=== PATIENT | female | born 1965 | race Caucasian/White ===

== ENCOUNTER 2018-05-21 17:25 | Inpatient (IN) | payer BC, OTHER ==
[~2018-05-21] VITALS: Ht 175.3 cm; Wt 61.2 kg
--- NOTE | 2018-05-21 19:50 | NUR ---
Pre-Assessment Pt is a 53 year old female seen in intake, A&Ox4. Pt appears anxious, skin flushed and in noted with tearful eyes. Upon assessment pt states she is here for alcohol withdrawal. As intake assessment continues, pt appears to be emotional as this is her first time in detox treatment - reassurance provided and education continued. Vital signs taken, rules of the unit explained such as vital signs Q4H, wasting of controlled substances, kitchen access, and smoking patio privileges. Pt verbalized understanding. Will continue with admission process upon arrival on unit.
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
[2018-05-21 20:10] VITALS: BP 156/94
[2018-05-21] MEDS ORDERED: DICYCLOMINE HCL 20 MG TABLET PO PRN (20:15)
[2018-05-21] MEDS ORDERED: ONDANSETRON 4 MG/2 ML VIAL IM PRN (20:15)
[2018-05-21] MEDS ORDERED: LORAZEPAM 1 MG TABLET PO PRN (20:15)
[2018-05-21] MEDS ORDERED: IBUPROFEN 600 MG TABLET PO PRN (20:15)
[2018-05-21] MEDS ORDERED: THIAMINE HCL 200 MG/2 ML VIAL IM ONE (20:15)
[2018-05-21] MEDS ORDERED: LORAZEPAM 2 MG/1 ML VIAL IM PRN (20:15)
[2018-05-21] MEDS ORDERED: MIRALAX 17 GM POWD.PACK PO PRN (20:15)
[2018-05-21] MEDS ORDERED: MAGNESIUM HYDROXIDE 30 ML LIQUID UDC PO PRN (20:15)
[2018-05-21] MEDS ORDERED: LOPERAMIDE HCL 2 MG CAPSULE PO PRN ×2 (20:15)
[2018-05-21] MEDS ORDERED: ONDANSETRON ODT 4 MG TAB.RAPDIS SL PRN (20:15)
[2018-05-21] MEDS ORDERED: MAG HYDROX/AL HYDROX/SIMETH 30 ML LIQUID UDC PO PRN (20:15)
[2018-05-21] MEDS ORDERED: ACETAMINOPHEN 325 MG TABLET PO PRN (20:15)
[2018-05-21 20:40] LABS: *URINE HCG, QUAL NEGATIVE (NEGATIVE)
[2018-05-21 20:40] LABS: BASOPHILS # (AUTO) 0.1 K/uL (0.0-8.0); BASOPHILS % (AUTO) 2.9 % (0.0-2.0); EOSINOPHILS # (AUTO) 0.1 K/uL (0.0-0.7); EOSINOPHILS % (AUTO) 1.6 % (0.0-7.0); HEMATOCRIT 44.2 % (31.2-41.9); LYMPHOCYTES # (AUTO) 2.3 K/uL (20.0-40.0); LYMPHOCYTES % (AUTO) 45.6 % (20.5-51.5); MEAN CORPUSCULAR HEMOGLOBIN 34.6 uug (24.7-32.8); MEAN CORPUSCULAR HGB CONC 34 g/dL (32.3-35.6); MEAN CORPUSCULAR VOLUME 101.8 fL (75.5-95.3); MONOCYTES # (AUTO) 0.4 K/uL (2.0-10.0); MONOCYTES % (AUTO) 7.4 % (0.0-11.0); NEUTROPHILS # (AUTO) 2.1 K/uL (1.8-8.9); NEUTROPHILS % (AUTO) 42.5 % (38.5-71.5); PLATELET COUNT (AUTO) 285 K/uL (179-408); RED BLOOD CELL COUNT(AUTO) 4.34 MIL/uL (3.63-4.92)
[2018-05-21 20:52] LABS: BILIRUBIN,TOTAL 0.4 mg/dL (0.2-1.0); CREATININE 0.7 mg/dL (0.6-1.3); MAGNESIUM 1.8 mg/dL (1.8-2.4); POTASSIUM 3.7 mmol/L (3.5-5.1); TOTAL PROTEIN, SERUM 8.4 g/dL (6.4-8.2)
[2018-05-21 21:13] LABS: THYROID STIMULATING HORMONE 0.829 mIU/mL (0.358-3.740)
[2018-05-21 21:14] LABS: *AMPHETAMINE, URINE NEGATIVE (NEGATIVE); *BARBITURATE, URINE NEGATIVE (NEGATIVE); *CANNABINOID, URINE NEGATIVE (NEGATIVE); *COCCAINE, URINE NEGATIVE (NEGATIVE); *OPIATE, URINE NEGATIVE (NEGATIVE); *PHENCYCLIDINE SCREEN,URINE NEGATIVE (NEGATIVE)
[2018-05-21] MEDS: LORAZEPAM 1 MG TABLET PO PRN (21:17)
--- NOTE | 2018-05-21 21:17 | NUR ---
PRN Ativan 2mg Pt noted with CIWA: 16. PRN Ativan 2mg given and tolerated well. Will reassess within 1 HR. Will continue to monitor. Addendum: 05/22/18 at 0426 by CASSIDY ROGEL LVN withdrawal symptoms include mild nausea, fine tremors, sweat on forehead, moderate anxiety and agitation.
--- NOTE | 2018-05-21 22:05 | NUR ---
PRN Ativan 2mg Reassessment Medication effective. Pt expresses reduction of anxiety and noted with CIWA: 11. No s/s of ASE noted at this time. Respirations even and unlabored. Will continue to monitor. Addendum: 05/22/18 at 0445 by CASSIDY CROFTN Withdrawal symptoms include fine tremors, sweat on brow, anxiety, and agitation.
[2018-05-22 00:28] VITALS: BP 142/89
--- NOTE | 2018-05-22 00:28 | NUR ---
CIWA Assessment CIWA: 10. Pt noted with fine tremors, sweat on brow, anxiety, and agitation. Respirations even and unlabored. Will continue to monitor.
[2018-05-22] MEDS ORDERED: [UNRECOGNIZED DRUG - CODE] OP (03:43)
[2018-05-22] MEDS ORDERED: ALBU8HFA4 (03:43)
[2018-05-22 04:31] VITALS: BP 145/88
--- NOTE | 2018-05-22 04:31 | NUR ---
CIWA Assessment CIWA: 17. Pt noted with nausea, fine tremors, sweat on forehead, anxiety, and agitation. Respirations even and unlabored. Will continue to monitor.
--- NOTE | 2018-05-22 04:41 | NUR ---
PRN Zofran Pt c/o nausea and requested for PRN Zofran. Medication given and tolerated well. Will reassess within 30 minutes. Will continue to monitor.
[2018-05-22] MEDS: LORAZEPAM 1 MG TABLET PO PRN (04:54)
--- NOTE | 2018-05-22 04:54 | NUR ---
PRN Zofran Reassessment Medication effective. Pt expresses reduction of nausea. No s/s of ASE noted at this time. Respirations even and unlabored. Will continue to monitor.
--- NOTE | 2018-05-22 04:55 | NUR ---
PRN Ativan 2mg Pt noted with CIWA: 17. PRN Ativan 2mg given and tolerated well. Will reassess within 1 HR. Will continue to monitor.
--- NOTE | 2018-05-22 05:50 | NUR ---
PRN Ativan 2mg Reassessment Medication effective. Pt expresses reduction of anxiety. CIWA: 12. Pt noted with mild nausea, fine tremors, sweat on brow, anxiety, and agitation. No s/s of ASE noted at this time. Respirations even and unlabored. Will continue to monitor.
--- NOTE | 2018-05-22 07:00 | NUR ---
End of shift note Newly admitted patient. Pt was continuously noted with anxiety, agitation, restlessness, nausea, and sweat. Pt remained in room for entire shift after admission. Pt remained cooperative and compliant with all aspects of treatment. Pt was given PRN Ativan 2mg @2117 and @0455 and PRN Zofran @0441. Pt will start 3 day Ativan taper today. Pt slept for a total of 8 HRS. Last CIWA: 12 @0550. Respirations even and unlabored. Will endorse to day shift nurse.
--- NOTE | 2018-05-22 07:49 | NUR ---
Start of shift Pt is 53 y/o female admitted for medically supervised withdrawal of ETOH. Last CIWA 12 at 0600. Pt A&O x4. Pt reports anxiety, agitation, nausea and poor appetite. Symptoms presented are sweat on brow, chills, fine tremors, restlessness and fatigue. Pt presents with flat affect and depressed mood. Pt is currently on 3 day Ativan taper to manage withdrawal symptoms. Pt encouraged to participate in group activities, socialize with others and identify positive coping skills to maintain sobriety. Pt slept 8 hours. Safety measures in place; Bed in lowest position. Side rails up x2. Call light functioning and within reach. All needs attended and met. Will continue to monitor for withdrawal symptoms.
[2018-05-22 08:02] VITALS: BP 125/86
--- NOTE | 2018-05-22 08:15 | NUR ---
IGLESIAWA 14- Pt presents with anxiety, agitation, restless legs, fine tremors, sweat on brow, chills, fatigue, poor appetite, flat affect and depressed mood. Administer Ativan taper and PRN medications as ordered for withdrawal symptoms
[2018-05-22] MEDS: THIAMINE HCL 100 MG TABLET PO SCH (08:34)
[2018-05-22] MEDS: LORAZEPAM 1 MG TABLET PO SCH ×4 (08:34→21:07)
[2018-05-22] MEDS: MULTIVITAMINS,THERAPEUTIC TABLET PO SCH (08:34)
[2018-05-22] MEDS: FOLIC ACID 1 MG TABLET PO SCH (08:34)
[2018-05-22 08:39] LABS: BASOPHILS # (AUTO) 0.1 K/uL (0.0-8.0); BASOPHILS % (AUTO) 0.8 % (0.0-2.0); EOSINOPHILS # (AUTO) 0.1 K/uL (0.0-0.7); HEMATOCRIT 40.3 % (31.2-41.9); HEMOGLOBIN 13.8 g/dL (10.9-14.3); LYMPHOCYTES # (AUTO) 1.6 K/uL (20.0-40.0); LYMPHOCYTES % (AUTO) 24.4 % (20.5-51.5); MEAN CORPUSCULAR HEMOGLOBIN 34.4 uug (24.7-32.8); MEAN CORPUSCULAR HGB CONC 34 g/dL (32.3-35.6); MEAN CORPUSCULAR VOLUME 100.7 fL (75.5-95.3); MONOCYTES # (AUTO) 0.5 K/uL (2.0-10.0); MONOCYTES % (AUTO) 6.7 % (0.0-11.0); NEUTROPHILS # (AUTO) 4.4 K/uL (1.8-8.9); NEUTROPHILS % (AUTO) 66.1 % (38.5-71.5); PLATELET COUNT (AUTO) 222 K/uL (179-408); RED BLOOD CELL COUNT(AUTO) 4.01 MIL/uL (3.63-4.92); WHITE BLOOD COUNT (AUTO) 6.7 K/uL (3.8-11.8)
[2018-05-22 08:56] LABS: BILIRUBIN,TOTAL 0.8 mg/dL (0.2-1.0); CREATININE 0.7 mg/dL (0.6-1.3); POTASSIUM 3.7 mmol/L (3.5-5.1); TOTAL PROTEIN, SERUM 7.3 g/dL (6.4-8.2)
[2018-05-22] MEDS ORDERED: TUBERCULIN,PURIF.PROT.DERIV. 5 TU/0.1 ML TEST ID ONE (09:00)
[2018-05-22] MEDS ORDERED: 5 DAY TAPER OF LORAZEPAM -SERENITY PROTOCOL PO PRN (09:00)
[2018-05-22 12:04] VITALS: BP 129/88
--- NOTE | 2018-05-22 12:09 | NUR ---
CIWA 14- Pt c/o moderate with anxiety, malaise, fatigue, poor appetite, restless legs, fine tremors, flat affect and depressed mood. Pt on 3 day Ativan taper and PRN medications as ordered for withdrawal symptoms.
[2018-05-22 16:00] VITALS: BP 134/90
--- NOTE | 2018-05-22 16:11 | NUR ---
IGLESIAWA 14- Pt c/o anxiety, restless legs, fine tremors, fatigue, poor appetite. She is withdrawn, guarded, has flat affect and depressed mood. Pt anxious to call her this afternoon. She was able to get up and dressed today. Ambulated periodically around the unit.
--- NOTE | 2018-05-22 18:51 | NUR ---
End of shift Last CIWA 14 at 1600. Pt A&O x4. Today Pt presented with moderate anxiety, poor appetite, fine tremors, restlessness fatigue some agitation and intermittent nausea. Pt is currently on 3 day Ativan taper (day 1) to manage withdrawal symptoms and she reports it is helping. No PRNs given today. Pt encouraged to participate in group activities, socialize with others and identify positive coping skills to maintain sobriety. Pt attended one group therapy session. PO fluids 1250ml, voids X3, no BM. Safety measures in place; Bed in lowest position. Side rails up x2. Call light functioning and within reach. All needs attended and met. Will continue to monitor for withdrawal symptoms. Endorsed to PM shift.
--- NOTE | 2018-05-22 19:30 | NUR ---
Start of Shift Pt admitted 05/21/18 for medically managed withdrawal/detox from ETOH. Pt is allergic to [place] Sees, Dogs and Cats, on a regular diet and listed as a full code. Pt on Day 1 of a 3 day Ativan taper. Pt last reported CIWA of 14 at 1600 hours, pt appearing with gross tremors, anxiety, agitation, decreased appetite, report of nausea earlier in day, fatigue, chills/diaphoresis, depression and anhedonia. Pt appearing disheveled with uncombed hair, bags under eyes, flat affect with poor eye contact. Pt inquiring about possible d/c as early as within 24 hours, disease process and stress management skill discussed. Full safety measures in place, with bed locked and in lowest position, side rails x 2 up and call faith within reach with frequent rounding. Will continue to monitor for duration of shift, promptly attending to all s/sx's distress or w/d.
[2018-05-22 20:00] VITALS: BP 143/96
--- NOTE | 2018-05-22 20:00 | NUR ---
Evening Rounds CIWA 15, aeb anxiety and agitation, gross tremors, fatigue, depression, insomnia and anhedonia, dyspepsia
[2018-05-22] MEDS: diphenhydrAMINE 50 MG CAPSULE PO PRN (21:07)
--- NOTE | 2018-05-22 21:07 | NUR ---
PRN Med Benedryl 50mg PO given for insomnia. Will continue to monitor and reassess in 1 hour.
--- NOTE | 2018-05-22 22:07 | NUR ---
PRN Reassessment Benedryl 50mg PO given for insomnia 1 hour prior. At present, pt is resting with eyes closed, RR 16, even and nonlabored. Med effective.
[2018-05-23] VITALS: BP 132/96
--- NOTE | 2018-05-23 | NUR ---
Midnight Rounds VS's obtained and stable. CIWA deferred r/t pt somnalance. Will continue to monitor and promptly attend to all s/sx's w/d or distress noted.
[2018-05-23 04:00] VITALS: BP 122/84
--- NOTE | 2018-05-23 04:00 | NUR ---
0400 Rounds VS's obtained and stable. CIWA deferred r/t pt somnalance. Will continue to monitor and promptly attend to all s/sx's w/d or distress noted.
--- NOTE | 2018-05-23 07:30 | NUR ---
Start of shift Pt admitted for medically supervised withdrawal from ETOH. Pt on Day 2 of a 3 day Ativan taper. Pt last CIWA of 15 at 2000 hours. Pt presents with fine tremors, anxiety, poor appetite, fatigue, chills/diaphoresis, flat affect, depressed mood and anhedonia. Pt inquiring about possible d/c today. Pt encouraged to participate in group activities, socialize with others and identify positive coping skills to maintain sobriety. Pt slept 9 hours. All safety measures in place; Bed in lowest position. Side rails up x2. Call light functioning and within reach. All needs attended and met. Will continue to assess for withdrawal symptoms.
--- NOTE | 2018-05-23 07:42 | NUR ---
End of Shift Endorsement given to day nurse. Pt admitted 05/21/18 for medically managed withdrawal/detox from ETOH. Pt is allergic to [place] Sees, Dogs and Cats, on a regular diet and listed as a full code. Pt on Day 2 of a 3 day Ativan taper. Pt maintains with poor ADL routine, including grooming and dental hygiene. Flat affect with soft speech, poor eye contact and disheveled. Pt slept for 9 hours. Sole PRN for shift was Benedryl 50mg. Pt had 1298 mls intake with 3 voids. Last CIWA 15 at 2000 hours. Full safety measures in place, with bed locked and in lowest position, side rails x 2 up and call faith within reach with frequent rounding. Will continue to monitor for duration of shift, promptly attending to all s/sx's distress or w/d.
[2018-05-23 08:00] VITALS: BP 140/92
--- NOTE | 2018-05-23 08:10 | NUR ---
CIWA 13- Pt presents with fine tremors, anxiety, poor appetite, fatigue, chills/diaphoresis, generalized body aches, flat affect, depressed mood and anhedonia. Administer Ativan 1 mg po per MD ordered taper.
[2018-05-23] MEDS: FOLIC ACID 1 MG TABLET PO SCH (08:46)
[2018-05-23] MEDS: LORAZEPAM 1 MG TABLET PO SCH ×3 (08:46→21:05)
[2018-05-23] MEDS: MULTIVITAMINS,THERAPEUTIC TABLET PO SCH (08:46)
[2018-05-23] MEDS: THIAMINE HCL 100 MG TABLET PO SCH (08:46)
[2018-05-23 11:06] LABS: HEPATITIS B SURFACE AG Negative (Negative)
[2018-05-23 12:00] VITALS: BP 140/94
--- NOTE | 2018-05-23 12:05 | NUR ---
SUDHIR 12- Pt presents with moderate anxiety, sweats, fine tremors, elevated heart rate 96, and she is fidgety. Administer Ativan as order per taper protocol.
--- NOTE | 2018-05-23 13:15 | NUR ---
Therapist prompted client to attend group therapy sessions twice daily.
[2018-05-23 16:00] VITALS: BP 143/95
--- NOTE | 2018-05-23 16:09 | NUR ---
CIWA 11- Pt continues with moderate anxiety, fine tremors, sweats, fatigue and restlessness. Administered Ativan as order per taper protocol.
--- NOTE | 2018-05-23 18:46 | NUR ---
End of shift Pt on Day 2 of a 3 day Ativan taper. She reports this regimen is helping her and making her comfortable. Last CIWA 11 at 1600 hours. Pt presents with fine tremors, anxiety, poor appetite, fatigue, chills/diaphoresis, flat affect, depressed mood and anhedonia. Pt encouraged to participate in group activities, socialize with others and identify positive coping skills to maintain sobriety. PO fluids 2200ml, voids X5, BM X1. All safety measures in place; Bed in lowest position. Side rails up x2. Call light functioning and within reach. All needs attended and met. Will continue to assess for withdrawal symptoms. Endorsed to PM shift.
--- NOTE | 2018-05-23 19:15 | NUR ---
Start of Shift Note: Patient is a 53 y.o female admitted on 05/21/18 for medically supervised withdrawal from ETOH. Patient is alert & oriented x4. She appears flushed, disheveled with uncombed hair. She has a blunt affect, anxious and agitated. Skin is noted to be moist & clammy. Fine tremors noted. She denies pain & discomfort. No N/V/D noted. Pt denies any hallucinations at this time. Respiration even & unlabored. Abdomen soft & non-distended. She is on day #2 of her 3-day Ativan taper and tolerating well. Last CIWA 11 @ 1600. No PRN medications during day shift. Educated patient current plan of care for the night and medication regimen including frequent rounding and vitals signs check every 4 hours. Pt verbalized understanding. Fall & seizure precautions observed. Bed locked in lowest position, both side rails up for safety and call light within pts reach. Will continue to monitor patient.
[2018-05-23 20:00] VITALS: BP 132/90
--- NOTE | 2018-05-23 20:00 | NUR ---
CIWA assessment She appears flushed, disheveled with uncombed hair. She has a blunt affect, depressed, anxious and agitated mood. Skin is noted to be moist & clammy. Fine tremors noted. She denies pain & discomfort. No N/V/D noted. Pt denies any hallucinations at this time. CIWA 10 noted.
[2018-05-23] MEDS: diphenhydrAMINE 50 MG CAPSULE PO PRN (21:05)
--- NOTE | 2018-05-23 21:05 | NUR ---
PRN Benadryl Patient complains of inability to fall asleep and requesting medication for sleep. PRN benadryl administered as ordered. Will continue to monitor patient.
--- NOTE | 2018-05-23 22:05 | NUR ---
PRN Reassessment Patient still awake at this time and watching TV. Pt stated that she will sleep soon. Pt stable. No complaints of pain/discomfort at this time. Will continue to monitor patient.
[2018-05-24] VITALS: BP 120/88
--- NOTE | 2018-05-24 | NUR ---
CIWA Assessment Patient presented with anxiety, agitation, moist/clammy skin, & fine tremors. Pt denies nausea/vomiting. No pain/discomfort noted. She denies any hallucinations. CIWA 9.
[2018-05-24 04:00] VITALS: BP 114/72
--- NOTE | 2018-05-24 07:09 | NUR ---
End of Shift Note: Patient is alert & oriented x4. She presented with withdrawal symptoms anxiety, agitation, sweating & fine tremors. She continues on her Ativan taper and tolerating well. Last CIWA 9. Pt reported that medication is effective in decreasing symptoms of withdrawal. Pt received PRN Benadryl for sleep. Encourage pt to increase fluid intake for hydration. Patient is stable and vitals WNL. Pt slept for a total of 7 hours. Fluid intake:1899ml, Voided 3x with no BM noted. All due meds given and all needs attended. All safety measures in place; Bed in lowest position. Side rails up x2. Call light functioning and within reach. Will continue to closely monitor patient for s/s of withdrawal. Will endorse all pertinent information to AM nurse.
--- NOTE | 2018-05-24 07:30 | NUR ---
Start of Shift Note: Report received from metal furniture glazier nurse. Pt is a 53F, admitted for ETOH withdrawal. Per metal furniture glazier nurse, pts last CIWA was 7 and she slept for 6 hours. Pt continues on her Ativan taper to manage withdrawal symptoms. Upon start of shift, pt was in bed with eyes closed. Pt is arousable to name. During assessment, pt is AOx4. Pt stated I had good sleep last night but I still feel tired. Pt denies any complaints at this time. Bed in lowest position. Side rails up x2. Call light functioning and within reach. All needs attended and met. Will continue to monitor.
[2018-05-24 08:00] VITALS: BP 110/73
--- NOTE | 2018-05-24 08:00 | NUR ---
CIWA CIWA 6, pt exhibits non-visible tremors, slight diaphoresis, and slight anxiety and agitation.
[2018-05-24] MEDS: MULTIVITAMINS,THERAPEUTIC TABLET PO SCH (08:35)
[2018-05-24] MEDS: FOLIC ACID 1 MG TABLET PO SCH (08:35)
[2018-05-24] MEDS: THIAMINE HCL 100 MG TABLET PO SCH (08:35)
[2018-05-24] MEDS: LORAZEPAM 1 MG TABLET PO SCH ×2 (08:36→20:05)
[2018-05-24 12:00] VITALS: BP 114/76
--- NOTE | 2018-05-24 12:00 | NUR ---
CIWA CIWA 6, pt with non-visible tremors, sweats, diaphoresis, and anxiety and agitation.
[2018-05-24 16:00] VITALS: BP 142/86
--- NOTE | 2018-05-24 16:00 | NUR ---
CIWA CIWA 6, noted with tremors, diaphoresis, and slight anxiety and agitation.
--- NOTE | 2018-05-24 19:26 | NUR ---
End of Shift Note: Report given to slot shift manager nurse. Pt was able to participate in group activity today. Last CIWA 6 at 1600. Pt had no complaints during shift. Pt to receive her last dose of Ativan taper tonight. Bed in lowest position. Side rails up x2. Call light functioning and within reach. All needs attended and met.
--- NOTE | 2018-05-24 19:30 | NUR ---
Start of shift note Received report from day shift Nurse. Patient is a 53 year old female admitted for ETOH withdrawal. Patient is on 3rd day of her 3 day Ativan taper. Patient did not require PRN medication . Last CIWA 6. Patient alert and oriented x 4. Respiration even and unlabored. Patient presents with anxiety, sweating, insomnia and slight tremors. Patient states she had runny bowel movement but does not want anything. Encourage fluids. Safety measures in place. Call light in reach. Will continue to monitor.
[2018-05-24 20:00] VITALS: BP 120/73
--- NOTE | 2018-05-24 20:00 | NUR ---
CIWA assessment Patient presents with anxiety, sweating, insomnia and slight tremors. CIWA 6
[2018-05-24] MEDS: diphenhydrAMINE 50 MG CAPSULE PO PRN (21:19)
--- NOTE | 2018-05-24 21:19 | NUR ---
PRN Benadryl administration Patient requests for sleep aid. Will monitor for effectiveness
--- NOTE | 2018-05-24 22:30 | NUR ---
PRN Benadryl re-assessment Patient lying in bed with eyes closed. Respiration even and unlabored. Will continue to monitor
[2018-05-25] VITALS: BP 128/70
--- NOTE | 2018-05-25 | NUR ---
CIWA deferred Patient lying in bed with eyes closed. Respiration even and unlabored. Will continue to monitor
[2018-05-25 04:00] VITALS: BP 129/76
--- NOTE | 2018-05-25 04:00 | NUR ---
CIWA deferred Patient lying in bed with eyes closed. Respiration even and unlabored. Will continue to monitor
--- NOTE | 2018-05-25 07:19 | NUR ---
End of shift note Patient slept 7 hours. Fluid intake 1,296 ml. Voided x 6 . BM x 2. Monitored Patient throughout shift. Scheduled medication and taper given as ordered, tolerated well and no adverse reaction. Patient withdrawn, in her room most of the shift. Patient presented with anxiety, sweating, insomnia and slight tremors. Patient states she had runny bowel movement but does not want anything. Patient was given PRN Benadryl for sleep. Encouraged fluids. Safety measures in place. Call light in reach. Will continue to monitor. Last CIWA 6.
[2018-05-25 08:00] VITALS: BP 120/80
--- NOTE | 2018-05-25 08:00 | NUR ---
Star of Shift Notes/CIWA Assessment: Received patient in her room. Awake, alert and verbally responsive. Oriented x 4. Appears disheveled and unkempt. Noted with garbage around the room. Encouraged maintenance of personal hygiene and space. CIWA 10, noted with complains of intermittent perspiration, she states "It's on and off that I get sweaty then I don't." Sweaty palms noted and increased sense of cravings. She states "I'm just really anxious, I don't know how the discharge is going to be." Education and reassurance was provided. She denies S/I or H/I. No AV hallucinations noted. Patient is a 53 year old female admitted for ETOH withdrawal who was placed on a 3-day Ativan taper as ordered. Patient completed taper last night at 2100 and will be under 24 hours observation today. Educated patient on her current plan of care for the day and her medication regimen. Encouraged oral fluid intake and encouraged group participation to learn new skills to prevent relapse. Per night report, patient received PRN Benadryl for sleep. Last CIWA 6, and slept for 7 hours. Will continue to monitor.
[2018-05-25] MEDS: THIAMINE HCL 100 MG TABLET PO SCH (08:27)
[2018-05-25] MEDS: MULTIVITAMINS,THERAPEUTIC TABLET PO SCH (08:27)
[2018-05-25] MEDS: FOLIC ACID 1 MG TABLET PO SCH (08:27)
[2018-05-25 12:00] VITALS: BP 138/93
--- NOTE | 2018-05-25 12:18 | NUR ---
CIWA Assessment: CIWA 10, patient continues to present with gross tremors, intermittent perspiration, anxiety, agitation, paresthesia and restlessness. VS stable. Will continue to monitor and provided support.
[2018-05-25] MEDS ORDERED: DIPH50CA37 PO (15:16)
[2018-05-25 16:00] VITALS: BP 138/85
--- NOTE | 2018-05-25 16:16 | NUR ---
CIWA Assessment: CIWA 9, patient continues to present with anxiety, agitation, gross tremors, facial flushing, and intermittent sweats. Will continue to monitor and offer support.
--- NOTE | 2018-05-25 19:03 | NUR ---
End of Shift Notes: Patient completed her 3-day Ativan taper as ordered. No adverse reactions noted. VS monitored closely. No significant abnormalities noted. Withdrawal symptoms were closely monitored. Initial CIWA 10, patient presented with gross tremors, anxiety, agitation, intermittent perspiration, chills, tingling sensation to fingertips and toes. Last CIWA 9. Patient will be discharging tomorrow AM. Showered today and participated in group and activities. Appetite good. All needs met and attended. Will continue to monitor.
--- NOTE | 2018-05-25 19:30 | NUR ---
Start of shift note Received report from day shift Nurse. Patient is a 53 year old female admitted for ETOH withdrawal. Patient did not require PRN medication. Last CIWA 9. Patient completed 3 day Ativan taper, tolerated well and no adverse reaction. Patient is medically cleared to be discharge tomorrow. Patient in the room. Alert and oriented x 4. Patient presents with anxiety, intermittent perspiration, slight tremors and insomnia. Safety measures in place. Call light in reach. Will continue to monitor
[2018-05-25 20:00] VITALS: BP 138/88
--- NOTE | 2018-05-25 20:00 | NUR ---
CIWA assessment Patient presents with anxiety, intermittent perspiration, slight tremors and insomnia. CIWA 6.
[2018-05-25] MEDS: diphenhydrAMINE 50 MG CAPSULE PO PRN (21:20)
--- NOTE | 2018-05-25 21:30 | NUR ---
PRN Benadryl administration Patient requests for sleep aid. Will monitor for effectiveness
--- NOTE | 2018-05-25 22:30 | NUR ---
PRN Benadryl re-assessment Patient lying in bed with eyes closed. Respiration even and unlabored. Will continue to monitor
[2018-05-26] VITALS: BP 128/74
--- NOTE | 2018-05-26 | NUR ---
CIWA deferred Patient lying in bed with eyes closed. Respiration even and unlabored. Will continue to monitor
[2018-05-26 04:00] VITALS: BP 134/78
--- NOTE | 2018-05-26 04:00 | NUR ---
CIWA deferred Patient lying in bed with eyes closed. Respiration even and unlabored. Will continue to monitor
--- NOTE | 2018-05-26 07:18 | NUR ---
End of shift note Patient slept 7 hours. Fluid intake 1,355 ml . Voided x 7. No BM. Patient completed 3 day Ativan taper, tolerated well and no adverse reaction. Patient is medically cleared to be discharge today. Patient presented with anxiety, intermittent perspiration, slight tremors and insomnia. Patient was given PRN Benadryl for sleep. Safety measures in place. Call light in reach. Will continue to monitor. Last CIWA 6 .
--- NOTE | 2018-05-26 07:50 | NUR ---
Start of Shift Pt is a 53 y/o f admitetd on 05/21/18 for medically supervised ETOH withdrawal. Pt has completed a 5 day ativan taper yesterday and tolerated well. Pt is scheduled to be discharged today. Pt presents anxiety, restlessness, tremors and intermittent diaphoresis. Last CIWA 6. Side rails upx2, bed in lowest position, and call light is within reach. Safety measures in place. Will continue to monitor.
[2018-05-26 08:00] VITALS: BP 140/78
--- NOTE | 2018-05-26 08:00 | NUR ---
CIWA 6 Pt presents anxiety, restlessness, tremors and intermittent diaphoresis. Refuses prn meds. Will continue to monitor.
[2018-05-26] MEDS: FOLIC ACID 1 MG TABLET PO SCH (08:39)
[2018-05-26] MEDS: MULTIVITAMINS,THERAPEUTIC TABLET PO SCH (08:39)
[2018-05-26] MEDS: THIAMINE HCL 100 MG TABLET PO SCH (08:39)
--- NOTE | 2018-05-26 09:33 | NUR ---
DISCHARGE NOTE Pt left in stabld condition; VS wnl. Pt has been given d/c instructions and pt verbalized understanding. Last CIWA 6. aware of pt's d/c. Pt has left the building at 0933 05/26/18 with all belongings, d/c paperwork and home meds. Pt has been picked up by [employer] transportation and is being taken to [facility].
== END 2018-05-26 09:33 | DRG 895 ==
LOC: SRC 18:33
PROVIDERS: ADMIT Family Medicine Addiction Medicine; ATTEND Family Medicine Addiction Medicine
PROC: HZ2ZZZZ Detoxification Services for Substance Abuse Treatment (ICD-10-PCS; principal; 2018-05-21)
PROC: HZ41ZZZ Group Counseling for Substance Abuse Treatment, Behavioral (ICD-10-PCS; 2018-05-23)
DX: F10.230 Alcohol dependence with withdrawal, uncomplicated (principal); Y90.8 Blood alcohol level of 240 mg/100 ml or more; G62.9 Polyneuropathy, unspecified; Z87.891 Personal history of nicotine dependence; F41.9 Anxiety disorder, unspecified; R74.0 Nonspecific elevation of levels of transaminase and lactic acid dehydrogenase [LDH]; F32.9 Major depressive disorder, single episode, unspecified; D75.1 Secondary polycythemia
CPT/HCPCS: 36415; 70030-TC; 80307; 80346; 83690; 83735; 84443; 84703; 85025; 86580; 86592; 86705; 86803; 87340; 87806; A4663; G0480; J3411; Q0162; Q0163